=== PATIENT | male | born 2005 | race Caucasian/White ===

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

== ENCOUNTER 2024-04-04 21:19 | Emergency (ER) | payer BC ==
[~2024-04-04] VITALS: Ht 175.3 cm; Wt 61.8 kg
[2024-04-04] MEDS ORDERED: NAPR-837 PO (23:40)
[2024-04-04] MEDS: NAPROXEN 250 MG TAB PO ONE (23:55)
[2024-04-05 00:08] VITALS: BP 122/85; TEMP 98.8; O2SAT 98
== END 2024-04-05 00:08 | disposition home or self-care (01) ==
LOC: M ED 21:19
DX: S49.91XA Unspecified injury of right shoulder and upper arm, initial encounter (principal); V86.92XA Unspecified occupant of snowmobile injured in nontraffic accident, initial encounter; X58.XXXA Exposure to other specified factors, initial encounter; Y92.828 Other wilderness area as the place of occurrence of the external cause; Y93.9 Activity, unspecified; Y99.9 Unspecified external cause status

== ENCOUNTER → 2025-01-25 | Outpatient (REF) | payer BC ==
[~2025-01-25] MED LIST changes: +NAPR-837 PO
== END ==
LOC: M LAB REF 17:12
PROVIDERS: ATTEND Physician Assistant Medical
DX: B34.9 Viral infection, unspecified (principal)